=== PATIENT | female | born 1955 | race Caucasian/White ===

== ENCOUNTER 2016-12-24 06:51 | Day surgery (SDC) | payer BC ==
[2016-12-24] MEDS ORDERED: PROPOFOL 10 MG/ML VIAL IV ONE (14:00)
--- NOTE | 2016-12-27 16:20 | Operative Note ---
DATE OF SURGERY: 12/24/2016 REQUESTING PHYSICIAN: Rani Leblanc DO SURGEON: Tate Dean MD POSTOPERATIVE DIAGNOSES: 1. An 8 mm sessile polyp in the descending colon that was removed by snare cautery. 2. Otherwise normal colon. OPERATION: COLONOSCOPY and exam. REASON FOR PROCEDURE: This is a 62-year-old female with average risk for colorectal cancer who presented for screening colonoscopy. SEDATION: Sedation as per anesthesia. Pulse oximetry was monitored throughout the duration of the procedure to maintain O2 saturation of 90% or greater. Supplemental oxygen was administered via nasal cannula. Cardiac and vital signs were monitored throughout the duration of the procedure and they were stable. PROCEDURE: Description of the procedure of colonoscopy, risks, and alternatives to the procedure including the risk of bleeding and perforation among others were explained to the patient who voiced understanding and agreed to have the procedure done. A physical examination was performed and the patient was found stable for sedation. The patient was then placed in the left lateral position and sedation was initiated. Digital rectal exam was performed and showed small external hemorrhoids with no palpable rectal masses. A lubricated Olympus PCF-180AL colonoscope was then inserted into the rectum under direct visualization and was advanced to the cecum without difficulty. The ileocecal valve and appendiceal orifice were identified and photographed. The colonic mucosa was carefully examined upon insertion of the colonoscope. There was an 8 mm sessile polyp that was noted in the descending colon that was removed by snare cautery. There were no other lesions noted. The colonoscope was then withdrawn while carefully examining the colonic mucosal surfaces. No other lesions were noted. In the rectum, retroflexion was performed and grade 1 internal hemorrhoids were noted. The colonoscope was then withdrawn and the procedure was terminated. The patient tolerated the procedure well without any complications. The patient remained with stable vital signs and was sent to the recovery room. PLAN AND RECOMMENDATIONS: 1. The patient is to be on a low-acid diet for 2 weeks and thereafter should be on a high-fiber diet. 2. She is to avoid any aspirin or aspirin-containing medications for 2 weeks. 3. She should have surveillance colonoscopy in about 5 of 10 years depending on histology of the polyp. Thank you for allowing me to participate in the care of this patient. Tate Dean MD CC: DO MARTIN Avila
== END 2016-12-24 09:10 | disposition home or self-care (01) ==
LOC: HOP 06:51
PROVIDERS: ATTEND Internal Medicine Gastroenterology
DX: Z12.11 Encounter for screening for malignant neoplasm of colon (principal); D12.4 Benign neoplasm of descending colon